=== PATIENT | female | born 1940 | race Two or more races ===

== ENCOUNTER 2017-09-21 09:55 | Emergency (ER) | payer OTHER ==
[~2017-09-21] VITALS: Ht 162.6 cm; Wt 104.3 kg
[~2017-09-21 09:55] MED LIST: AMOX1TAB12 PO; BACTROBAN OINT22 GM TP; CEFADROXIL500 MG PO; COGENTIN1 MG/ML IJ; HALDOL5 MG/M1 IJ; METFORMIN HYDRO25 GM MC; TESSALON200 MG PO; TOPROL XL25 MG; TUSSI-PRES LIQ120 ML PO; VASOTEC2.5 MG PO; VYTORIN 10-20 M1 TAB PO; ZOCOR40 MG
[2017-09-21] MEDS ORDERED: SYNTHROID50 MCG (10:39)
[2017-09-21] MEDS ORDERED: COZAAR25 MG (10:39)
== END 2017-09-21 12:13 | disposition home or self-care (01) ==
LOC: ER 09:55
DX: J06.9 Acute upper respiratory infection, unspecified (principal)

== ENCOUNTER 2017-12-25 09:11 | Emergency (ER) | payer OTHER ==
[~2017-12-25] VITALS: Ht 162.6 cm; Wt 104.3 kg
[~2017-12-25 09:11] MED LIST changes: +COZAAR25 MG; +SYNTHROID50 MCG
[2017-12-25] MEDS ORDERED: SKELAXIN800 MG PO (12:53)
[2017-12-25] MEDS ORDERED: CELEBREX100 MG PO (12:53)
== END 2017-12-25 13:13 | disposition home or self-care (01) ==
LOC: ER 09:11
DX: M54.5 Low back pain (principal); M25.572 Pain in left ankle and joints of left foot; I87.2 Venous insufficiency (chronic) (peripheral); M71.22 Synovial cyst of popliteal space [Baker], left knee

== ENCOUNTER 2018-08-26 09:31 | Emergency (ER) | payer OTHER ==
[~2018-08-26] VITALS: Ht 157.5 cm; Wt 104.3 kg
[~2018-08-26 09:31] MED LIST changes: +CELEBREX100 MG PO; +SKELAXIN800 MG PO
[2018-08-26] MEDS ORDERED: BACTRIM DS TAB1 EACH PO (10:51)
== END 2018-08-26 11:06 | disposition home or self-care (01) ==
LOC: ER 09:31
DX: N39.0 Urinary tract infection, site not specified (principal); B96.29 Other Escherichia coli [E. coli] as the cause of diseases classified elsewhere

== ENCOUNTER 2019-03-19 12:04 | Emergency (ER) | payer OTHER ==
[~2019-03-19] VITALS: Ht 162.6 cm; Wt 99.8 kg
[~2019-03-19 12:04] MED LIST changes: +BACTRIM DS TAB1 EACH PO
[2019-03-19] MEDS ORDERED: FORTAMET1000 MG PO (12:44)
[2019-03-19] MEDS ORDERED: COZAAR100 MG PO (12:45)
[2019-03-19] MEDS ORDERED: ZOLPIDEM PO (12:46)
== END 2019-03-19 15:59 | disposition home or self-care (01) ==
LOC: ER 12:04
DX: R53.1 Weakness (principal)